=== PATIENT | female | born 1970 | race Caucasian/White ===

== ENCOUNTER 2020-04-24 09:18 | Outpatient (REF) | payer BC, SELFPAY ==
--- NOTE | 2020-04-24 09:42 | XR_ITS ---
EXAMINATION: XR HIP, RIGHT CLINICAL INFORMATION: Pain in the right hip COMPARISON: None TECHNIQUE: Two views of the right hip. Frontal view of the pelvis. FINDINGS: No fracture or dislocation. The pelvic rim is intact. Sacroiliac joints and pubic sepsis are intact. The hips are well aligned. Mild degenerative changes of both hips with narrowing and sclerosis. Small osteophytes. The bowel gas pattern is unremarkable. XR/XR hip RT w PEL1V IMPRESSION: Mild degenerative changes of both hips.
== END 2020-04-24 09:19 | disposition home or self-care (01) ==
LOC: HO.HOSX 09:18
PROVIDERS: PCP Radiology Diagnostic Radiology; Referring Provider Radiology Diagnostic Radiology; Visit Provider Orthopaedic Surgery
DX: M25.551 Pain in right hip (principal); M54.16 Radiculopathy, lumbar region
CPT/HCPCS: 73502

== ENCOUNTER → 2020-10-25 10:50 | Outpatient (BNVA) | payer BC, SELFPAY | PROVIDERS: PCP Registered Nurse; Visit Provider Nurse Practitioner ==

== ENCOUNTER 2021-01-08 06:24 | Day surgery (SDC) | payer BC, SELFPAY ==
[2020-12-21 09:36] LABS: Alanine Aminotransferase 25 U/L (0-31); Albumin Level 4.3 g/dL (3.5-5.0); Alkaline Phosphatase 104 U/L (39-117); Anion Gap 14 (12-20); Aspartate Amino Transferase 19 U/L (5-31); Bilirubin Total 0.5 mg/dL (0.0-1.0); Blood Urea Nitrogen 12 mg/dL (9-16); Calcium 9.1 mg/dL (8.4-10.2); Carbon Dioxide 27 mmol/L (22-29); Chloride 105 mmol/L (96-108); Estimated Glomerular Filt Rate > 60; Glucose Random 107 mg/dL (60-115); Potassium 4.2 mmol/L (3.3-5.1); Sodium 142 mmol/L (135-145); Total Protein 7.5 g/dL (6.5-8.0)
[2021-01-02 14:16] VITALS: BMI 29.2
[2021-01-08 06:39] VITALS: BP 169/96; PULSE 107; RESP 16; TEMP 37; O2SAT 99
--- NOTE | 2021-01-08 07:15 | HO.ANESPROP2 ---
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 Family History Family History Father Bladder cancer Heart disease HTN (hypertension) Diabetes High cholesterol Mother HTN (hypertension) Paternal Grandfather Diabetes Paternal Grandmother Diabetes Family history of problems with anesthesia: No Surgical History Surgical History Hx of laminectomy History of Problems with Anesthesia: No Social History Social History (Updated 01/02/21 @ 14:18 by Ivy Marcum) Patient Tobacco Use Status: Never used Tobacco Use of substances other than those prescribed or required for medical reasons: No Are you DNR?: No Advance Directives: No Advance Directives Information Provided: No Advance Directives on File: No Current occupational status: employed Current occupation: [employer] - [employer] Allergies Allergy/AdvReac Type Severity Reaction Status Date / Time No Known Allergies Allergy Verified 01/08/21 06:38 Home Medications Medication Instructions Recorded Confirmed Last Taken Type latanoprost 0.005 % eye drops 1 drp OPHTHALMIC (EYE) BEDTIME 08/24/20 01/02/21 Unknown History multivitamin 1 tab PO DAILY 08/24/20 01/02/21 Unknown History omega-3 fatty acids-fish oil 360 1 cap PO DAILY 08/24/20 01/08/21 12/30/20 History mg-1,200 mg capsule (Fish Oil) lutein 25 mg-zeaxanthin 5 mg 1 cap PO DAILY 10/25/20 01/02/21 Unknown History capsule (Ocuvite Lutein) amlodipine 5 mg tablet 1 tab PO BEDTIME 01/02/21 01/08/21 01/07/21 18:15 History Exam Exam Date and Time: January 08, 2021 0715 Height,Weight and Vital Signs: Height 5 ft 2 in Weight 72.575 kg Last Vital Signs Temp 98.6 F 01/08/21 06:39 Pulse 107 H 01/08/21 06:39 Resp 16 01/08/21 06:39 BP 169/96 H 01/08/21 06:39 Pulse Ox 99 01/08/21 06:39 Pertinent Lab Results Pertinent Lab Results: Laboratory Tests 12/21/20 07:45 Sodium 142 Potassium 4.2 Chloride 105 Carbon Dioxide 27 Anion Gap 14 BUN 12 Creatinine 0.69 Estim Creat Clear Calc TNP Estimated GFR > 60 Random Glucose 107 Calcium 9.1 Total Bilirubin 0.5 AST 19 ALT 25 Alkaline Phosphatase 104 Total Protein 7.5 Albumin 4.3 Airway Mallampati Class: II TM Dist: >3cm Neck ROM: Full Heart: RRR Lungs: CTAB Assessment and Plan Assessment Anesthesia Assessment: Anesthesia Plan Discussed and Chart Reviewed Final Anesthetic Review Family History of Problems with Anesthesia: No History of Problems with Anesthesia: No NPO: Yes ASA Class: II Final Preanesthetic Review: No Changes in Pt Med Stat, Meds/Allgs Chart Reviewed, Consent Obtained/Reviewed and Anes Risks/Benef Reviewed Patient Risk: Intermediate Procedure Risk: Low Assessment/Block/Sedation in SS: Assess/Block/Sedation-SS Anesthetic Plan Anesthetic Plan: MAC: Disposition: Standard PACU
--- NOTE | 2021-01-08 07:19 | MHC.SHP ---
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 No changes have occurred unless specified.
[2021-01-08] MEDS: Lactated Ringers 1,000 ML 100 ML IVCONT (07:29)
--- NOTE | 2021-01-08 07:35 | P.BOP_ITS ---
Brief Operative Note Date of Service: 01/08/21 Pre-op diagnosis: Colon cancer screening, family history of colon polyps (Dad in his 70's - had colon resection for a large pre-cancerous polyp) Post-op diagnosis: other (Colon polyp, diverticulosis) Procedure: COLONOSCOPY TO CECUM WITH BIOPSIES Consent: Indications for the procedure and potential complications of bleeding, perforation, reaction to medications and missed diagnosis were discussed with the patient and informed consent was obtained. Instrument: Olympus PCF H 190 L variable stiffness pediatric colonoscope Monitoring: Vital signs and clinical assessment, intermittent blood pressure monitoring, continuous EKG monitoring, Pulse oximetry and Carbon Dioxide monitoring were done throughout the procedure. Colon withdrawl time was 16 minutes. Procedure: The patient was placed in the left lateral decubitis position and pre-procedure medications were administered. After a digital rectal examination of the ano-rectum, the video colonoscope was inserted into the rectum and advanced through the colon to the cecum. The colonoscope was slowly withdrawn in a retrograde panoramic fashion and the colon mucosa was carefully examined including a retroflexed view of the rectum. Findings and interventions are described below. Procedure Difficulty: LLQ pressure applied to intubate the cecum Findings: Terminal Ileum: Not evaluated Cecum: Normal Ascending Colon: A 2-3 mm sessile polyp in the distal AC removed with a cold bx. Transverse Colon: Normal Descending Colon: Moderate diverticulosis Sigmoid Colon: Moderate diverticulosis Rectum: Normal Ano-rectum: Normal Colon preparation: Excellent Impression and Post Procedure Diagnosis: Colonoscopy Findings: One tiny polyp removed Moderate diverticulosis seen in the left colon Plan: Await pathology results Patient has an appointment on 01/21/21 in the GI Clinic with Toya Marie NP . Repeat Colonoscopy interval based on path results - in 5 years if polyps are adenomatous and 10 years if polyps are hyperplastic. Above findings were reviewed with the patient and colon polyps and diverticulosis handouts were given in the discharge area Surgeon: Juan Diego Stevens MD Anesthesia: MAC (Jacinda Ortez) Was an Glazing Department Supervisor used for this Procedure?: Yes Glazing Department Supervisor: Radha Retana Estimated blood loss (mL): 0 Pathology: other (A. ASCENDING COLON POLYP) Condition: stable Disposition: PACU
[2021-01-08 08:14] VITALS: BP 138/58; PULSE 98; RESP 16; TEMP 36.3; O2SAT 95
[2021-01-08 08:29] VITALS: BP 138/89; PULSE 86; RESP 16; TEMP 36.2; O2SAT 95
--- NOTE | 2021-01-08 12:15 | W.PM.OPN ---
Operative Note Operative Note Date of Service: 01/08/21 Narrative: Pre-op diagnosis:?Colon cancer screening, family history of colon polyps (Dad in his 70's - had colon resection for a large pre-cancerous polyp) Post-op diagnosis:?other (Colon polyp, diverticulosis) Procedure:? COLONOSCOPY TO CECUM WITH BIOPSIES Consent: Indications for the procedure and potential complications of bleeding, perforation, reaction to medications and missed diagnosis were discussed with the patient and informed consent was obtained. Instrument: Olympus PCF H 190 L variable stiffness pediatric colonoscope Monitoring: Vital signs and clinical assessment, intermittent blood pressure monitoring, continuous EKG monitoring, Pulse oximetry and Carbon Dioxide monitoring were done throughout the procedure. Colon withdrawl time was 16 minutes. Procedure: The patient was placed in the left lateral decubitis position and pre-procedure medications were administered. After a digital rectal examination of the ano-rectum, the video colonoscope was inserted into the rectum and advanced through the colon to the cecum. The colonoscope was slowly withdrawn in a retrograde panoramic fashion and the colon mucosa was carefully examined including a retroflexed view of the rectum. Findings and interventions are described below. Procedure Difficulty:? LLQ pressure applied to intubate the cecum Findings: Terminal Ileum: Not evaluated Cecum:? Normal Ascending Colon:? A 2-3 mm sessile polyp in the distal AC removed with a cold bx. Transverse Colon:? Normal Descending Colon:? Moderate diverticulosis Sigmoid Colon:? Moderate diverticulosis Rectum:? Normal Ano-rectum:? Normal Colon preparation: Excellent ? Impression and Post Procedure Diagnosis: Colonoscopy Findings: One tiny polyp removed Moderate diverticulosis seen in the left colon Plan: Await pathology results Patient has an appointment on 01/21/21 in the GI Clinic with? Toya Marie NP . Repeat Colonoscopy interval based on path results - in 5 years if polyps are adenomatous and 10 years if polyps are hyperplastic. Above findings were reviewed with the patient and colon polyps and diverticulosis handouts were given in the discharge area Surgeon:?Juan Diego Stevens MD Anesthesia:?MAC (Jacinda Ortez) Was an E Commerce Manager used for this Procedure?:?Yes E Commerce Manager:?Radha Retana Estimated blood loss (mL):?0 Pathology:?other (A. ASCENDING COLON POLYP) Condition:?stable Disposition:?PACU
== END 2021-01-08 09:20 | disposition home or self-care (01) ==
PROVIDERS: Absent Provider Nurse Practitioner; PCP Registered Nurse; Visit Provider Internal Medicine Gastroenterology
PROC: 0DJD8ZZ Inspection of Lower Intestinal Tract, Via Natural or Artificial Opening Endoscopic (ICD-10-PCS; CPT 45378; principal; 2021-01-08 07:30)
DX: Z12.11 Encounter for screening for malignant neoplasm of colon (principal); Z83.71 Family history of colonic polyps; D12.2 Benign neoplasm of ascending colon; K57.30 Diverticulosis of large intestine without perforation or abscess without bleeding; G93.5 Compression of brain; I10 Essential (primary) hypertension; D32.9 Benign neoplasm of meninges, unspecified; R00.0 Tachycardia, unspecified; D75.1 Secondary polycythemia; Z79.899 Other long term (current) drug therapy
CPT/HCPCS: 45380; 36415; 80053; 88305

== ENCOUNTER → 2021-01-21 08:44 | Outpatient (BNVA) | payer BC, SELFPAY | PROVIDERS: PCP Registered Nurse; Visit Provider Nurse Practitioner ==

== ENCOUNTER → 2024-02-04 12:07 | Outpatient (RCR) | payer BC, SELFPAY ==
--- NOTE | 2020-08-24 09:55 | P.CNHO_ITS ---
Subjective - Subjective Chief complaint: Elevated ferritin Patient: new to practice Consult date: 08/24/20 Requesting Physician: Brittany Locke Primary Care Provider: Brittany Locke NP Medical Summary: Diagnosis: Elevated ferritin, history of secondary polycythemia. Negative NANCY 2 mutation including Exon 12-15 HPI - Consult Narrative Reason for consult: High ferritin Narrative: Courtney Keller is a 49 year old female referred for evaluation of ferritins above 350 during the last couple of visits with her PCP. She underwent surgery for meningioma for thoracic spine in July 2020. She is recovering from it. Prior to that she was noted to have elevated hemoglobin and underwent testing for polycythemia vera. Subsequent to her surgery, her hemoglobin has normalized, but she was noted to have ferritin above 350 with normal transferrin saturations. Patient is a not a smoker, does not consume significant alcohol. Since her spine surgery, most of her symptoms related to meningioma have resolved. She no longer has weakness or tingling numbness in her extremities. She denies any significant pain. No constitutional symptoms such as fever, chills, night sweats or unexplained weight loss. 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 Family History: Family History (Last Updated 08/24/20 @ 10:09 by Lyndsay Salinas) Father Bladder cancer Heart disease HTN (hypertension) Diabetes High cholesterol Mother HTN (hypertension) Paternal Grandfather Diabetes Paternal Grandmother Diabetes Surgical History: Surgical History (Last Updated 08/24/20 @ 08:09 by Lyndsay Salinas) Hx of laminectomy Social History: Social History (Last Updated 08/24/20 @ 10:09 by Lyndsay Salinas) Alcohol History: Alcohol intake: former Alcohol History Details: Alcohol intake frequency: does not drink Tobacco History: Smoking Status: Never smoker Substance Use History: Use of substances other than those prescribed or required for medical reasons : No Occupation Assessmet: Current occupational status: employed Current occupation: [employer] - [employer] Home Medications and Allergies Home Medications Medication Instructions Recorded Confirmed Type amlodipine 1 tab PO DAILY 08/24/20 08/24/20 History latanoprost 1 drp OPHTHALMIC (EYE) BEDTIME 08/24/20 08/24/20 History metoprolol tartrate 1 tab PO BID 08/24/20 08/24/20 History multivitamin 1 tab PO DAILY 08/24/20 08/24/20 History omega-3 fatty acids-fish oil [Fish 1 cap PO DAILY 08/24/20 08/24/20 History Oil] Allergies Allergy/AdvReac Type Severity Reaction Status Date / Time No Known Allergies Allergy Verified 04/24/20 09:26 Physical Exam Vital signs: Vital Signs Temp Pulse Resp BP Pulse Ox 08/24/20 10:03 97.2 F 80 12 161/95 H 100 Intake and Output 08/23/20 08/24/20 08/24/20 22:59 06:59 14:59 Other: Weight 76 kg [place] Weight in Grams [id number] Patient Weight 08/25/20 06:59 Weight 76 kg - Constitutional Present: no acute distress - Routine HEENT Exam Head: Present: normal inspection Eye: Present: EOMI - Routine Neck Exam Present: supple - Routine Respiratory Exam Present: CTAB - Routine Cardiovascular Exam Cardiovascular: Present: S1, S2 Hem/Onc Consult Result - Labs CBC & Chem 7: 08/24/20 10:30 Assessment and Plan (1) Elevated ferritin Status: Acute 1. This is a 49-year-old woman referred for evaluation of high ferritin level. This was about 350 in July, it is declining currently it is 291. C-reactive protein is also elevated, therefore high ferritin is probably marker of inflammation. She recently underwent spine surgery and her elevated ferritin could be as a result of this. There is no family history of hemochromatosis and her transferrin saturation is only 20%. She is not on oral iron supplementation. Hemochromatosis gene analysis is pending. She previously had elevated hemoglobin which has normalized after her spine surgery for meningioma. Either it is as a result of blood loss from surgery or her polycythemia was secondary polycythemia related to meningioma itself. No further hematological intervention is necessary at this time. I thank you very much for this consultation, results will be discussed with the patient.
[2020-08-24 10:03] VITALS: BP 161/95; PULSE 80; RESP 12; TEMP 36.2; O2SAT 100; BMI 30.1
[2020-08-24 10:31] LABS: MANUAL DIFF FLAG NO
[2020-08-24 10:43] LABS: Basophils Absolute Auto 0.1 X10*3/uL (0.0-0.2); Basophils Percent Auto 0.5 % (0-2); Eosinophils Absolute Auto 0.2 X10*3/uL (0.0-0.4); Eosinophils Percent Auto 2.4 % (0-4); Hematocrit 41.9 % (37-47); Hemoglobin 13.9 g/dl (12.0-16.0); Imm Gran Abs Auto 0.03 X10*3/uL (0.00-0.03); Imm Gran Pct Auto 0.3 % (0.0-0.4); Lymphocytes Absolute Auto 2.3 X10*3/uL (1.2-4.9); Lymphocytes Percent Auto 25.4 % (20-40); Mean Corpuscular HGB Conc 33.2 g/dl (31.0-35.0); Mean Corpuscular Hemoglobin 29.2 pg (27.0-33.0); Mean Platelet Volume 9.6 fL (9.4-12.3); Monocytes Absolute Auto 0.8 X10*3/uL (0.1-1.2); Monocytes Percent Auto 8.6 % (2-11); Neutrophils Absolute Auto 5.8 X10*3/uL (2.0-8.3); Neutrophils Percent Auto 62.8 % (45-73); Platelet Count 277 X10*3/uL (160-400); Red Blood Count 4.76 X10*6/uL (4.20-5.50); Red Cell Distribution Width 11.6 % (11.0-16.0); White Blood Count 9.2 X10*3/uL (4.8-10.8)
--- NOTE | 2020-08-24 10:58 | MHC.HEMONCMA ---
Patient came in for a consult on high ferritin levels following a spinal surgery. Patient states she is doing well, no complaints. Clinical summary was reviewed and updated. Patient had labs and will return in 1 month for a follow up.
[2020-08-24 11:03] LABS: C Reactive Protein 0.65 mg/dL (< or = 0.50); Iron 62 mcg/dL (30-160); Percent Iron Saturation 20 % (15-50); Total Iron Binding Capacity 309 mcg/dL (228-428); Unsaturated Iron Binding 247 ug/dL
[2020-08-24 11:24] LABS: Erythrocyte Sedimentation Rate 19 MM/HR (0-20)
[2020-08-24 11:25] LABS: Ferritin 291 ng/mL (10-250)
--- NOTE | 2020-09-14 09:25 | HO.HEMONCTE1 ---
Hem/Onc Clinic Telehealth - Telehealth Location of Provider rendering services: Office Patient Identification confirmed using: Name, : Yes Telehealth Method: Telephone Patient verbally consented to treatment: Yes Patient verbally consented to billing insurance company: Yes Patient informed of any privacy concerns related to visit: Yes Medical Summary - Medical Summary Date of Service: 09/14/20 Chief complaint: Scheduled follow-up Medical Summary: Diagnosis: Elevated ferritin, history of secondary polycythemia. Negative NANCY 2 mutation including Exon 12-15 Negative hemochromatosis gene analysis. Interval History Interval history: This is scheduled follow-up for patient. She was consented for tele visit based on COVID-19 pandemic guidelines. Today's visit is to discuss results of her blood work. She is doing well and has no complaints today. Home Medications and Allergies Home Medications Medication Instructions Recorded Confirmed Type amlodipine 1 tab PO DAILY 08/24/20 08/24/20 History latanoprost 1 drp OPHTHALMIC (EYE) BEDTIME 08/24/20 08/24/20 History metoprolol tartrate 1 tab PO DAILY 08/24/20 09/14/20 History multivitamin 1 tab PO DAILY 08/24/20 08/24/20 History omega-3 fatty acids-fish oil [Fish 1 cap PO DAILY 08/24/20 08/24/20 History Oil] Allergies Allergy/AdvReac Type Severity Reaction Status Date / Time No Known Allergies Allergy Verified 04/24/20 09:26 Exam Vital signs: Vital Signs Temp 97.2 F 08/24/20 10:03 Pulse 80 08/24/20 10:03 Resp 12 08/24/20 10:03 BP 161/95 H 08/24/20 10:03 Pulse Ox 100 08/24/20 10:03 Weight 76 kg Body Mass Index 30.1 Narrative: This is tele visit, patient not examined today. - Constitutional Present: no acute distress - Routine HEENT Exam Head: Present: normal inspection - Routine Respiratory Exam Present: CTAB - Routine Cardiovascular Exam Cardiovascular: Present: S1, S2 Data - Labs CBC & Chem 7: 08/24/20 10:30 Labs: 08/24/20 10:30 C Reactive Protein Routine Complete Blood Count Auto Diff Routine DNA Analysis Hemochromatosis Routine Erythrocyte Sedimentation Rate Routine Ferritin Routine IRON PROFILE Routine Laboratory Last Values WBC 9.2 X10*3/uL (4.8-10.8) 08/24/20 10:30 RBC 4.76 X10*6/uL (4.20-5.50) 08/24/20 10:30 Hgb 13.9 g/dl (12.0-16.0) 08/24/20 10:30 Hct 41.9 % (37-47) 08/24/20 10:30 MCV 88.0 fL (80-98) 08/24/20 10:30 MCH 29.2 pg (27.0-33.0) 08/24/20 10:30 MCHC 33.2 g/dl (31.0-35.0) 08/24/20 10:30 RDW 11.6 % (11.0-16.0) 08/24/20 10:30 Plt Count 277 X10*3/uL (160-400) 08/24/20 10:30 MPV 9.6 fL (9.4-12.3) 08/24/20 10:30 Immature Gran % (Auto) 0.3 % (0.0-0.4) 08/24/20 10:30 Neut % (Auto) 62.8 % (45-73) 08/24/20 10:30 Lymph % (Auto) 25.4 % (20-40) 08/24/20 10:30 Mccracken % (Auto) 8.6 % (2-11) 08/24/20 10:30 Eos % (Auto) 2.4 % (0-4) 08/24/20 10:30 Baso % (Auto) 0.5 % (0-2) 08/24/20 10:30 Lymph # (Auto) 2.3 X10*3/uL (1.2-4.9) 08/24/20 10:30 Mccracken # (Auto) 0.8 X10*3/uL (0.1-1.2) 08/24/20 10:30 Eos # (Auto) 0.2 X10*3/uL (0.0-0.4) 08/24/20 10:30 Baso # (Auto) 0.1 X10*3/uL (0.0-0.2) 08/24/20 10:30 Abs Immat Gran (auto) 0.03 X10*3/uL (0.00-0.03) 08/24/20 10:30 Absolute Neuts (auto) 5.8 X10*3/uL (2.0-8.3) 08/24/20 10:30 Absolute Nucleated RBC 0.000 X10*3/uL (0.0-0.012) 08/24/20 10:30 Nucleated RBC % (auto) 0.0 /100WBC (0.0-0.2) 08/24/20 10:30 ESR 19 MM/HR (0-20) 08/24/20 10:30 Iron 62 mcg/dL (30-160) 08/24/20 10:30 TIBC 309 mcg/dL (228-428) 08/24/20 10:30 % Saturation 20 % (15-50) 08/24/20 10:30 Unsat Iron Binding 247 ug/dL 08/24/20 10:30 Ferritin 291 ng/mL (10-250) H 08/24/20 10:30 C-Reactive Protein 0.65 mg/dL (< or = 0.50) H 08/24/20 10:30 Hemochromatosis DNA SEE NOTE 08/24/20 10:30 Progress Note: A/P (1) Elevated ferritin Status: Acute Assessment and plan: 1. This is a 49-year-old woman referred for evaluation of high ferritin level. This was about 350 in July, it is declining currently it is 291. C-reactive protein is also elevated, therefore high ferritin is probably marker of inflammation. She recently underwent spine surgery and her elevated ferritin could be as a result of this. There is no family history of hemochromatosis and her transferrin saturation is only 20%. She is not on oral iron supplementation. Hemochromatosis gene analysis is negative. She previously had elevated hemoglobin which has normalized after her spine surgery for meningioma. Patient was given results, explain significance and answered all her questions. I spent about 10 minutes with the patient on the telephone. - Time Spent With Patient Total time spent is greater than 50% in coordination of care (as documented) at patient's floor/unit and/or counseling patient: less than 15 minutes
--- NOTE | 2020-09-14 10:20 | MHC.HEMONCMA ---
Patient had a telehealth with Dr Lloyd today. She states that she is doing well, no complaints. Clinical summary was reviewed and updated. Patient does not need to return per Dr Lloyd, so no follow up was made.
== END | disposition home or self-care (01) ==
LOC: HO.ONC 08-24 09:43
PROVIDERS: PCP Registered Nurse; Referring Provider Registered Nurse; Visit Provider Internal Medicine
DX: R79.89 Other specified abnormal findings of blood chemistry (principal); R79.82 Elevated C-reactive protein (CRP)
CPT/HCPCS: 36415; 81256; 82728; 83540; 85025; 85652; 86140; 99214